=== PATIENT | female | born 1980 | race Caucasian/White ===

== ENCOUNTER 2019-01-26 13:05 | Emergency (ER) | payer SELFPAY ==
[~2019-01-26] VITALS: Ht 162.6 cm; Wt 64.0 kg
[2019-01-26 15:38] VITALS: BP 108/71
== END 2019-01-26 18:22 | disposition left against medical advice (07) ==
LOC: ER 13:05
DX: Z53.21 Procedure and treatment not carried out due to patient leaving prior to being seen by health care provider (principal)